=== PATIENT | male | born 1930 | race Caucasian/White ===

== ENCOUNTER 2016-09-09 23:39 | Emergency (ER) | payer MEDICARE, OTHER ==
--- NOTE | ~2016-09-09 | ER ---
PATIENT'S NAME: THADDEUS NICHOLAS [facility] AGE: 86 Y [address] ROOM: [place] [address] LOCATION: [facility] ADMIT DATE: 09/09/2016 ER/Outpatient Report DISCHARGE DATE: FAMILY PHYSICIAN: Blanco Neff MD ATTENDING PHYSICIAN: Sajan Roy Admission date and time documented in the medical record. I saw the patient at 2350 hours. CHIEF COMPLAINT: Diarrhea. HISTORY OF PRESENT ILLNESS: This patient is an 86-year-old male, who has had watery, profuse, explosive diarrhea for the past week. He had a large explosive diarrheal stool today. No bright red blood was noted in the stool. No nausea or vomiting. No fever, chills, or sweats. No cough or colds. He has not really been lightheaded, dizzy, or having syncope or near syncope. No headache, eyes, ears, nose, throat, neck, or spine pain. No chest pain. He is a little bit short of breath because of the abdominal distention that he has been having. No abdominal pain, but having abdominal distention. No nausea or vomiting. No urinary frequency, urgency, or dysuria. No joint or muscle swelling, redness, or pain. No skin eruptions or rash. HOME MEDICATIONS: See attached medication list. ALLERGIES: NONE. SOCIAL HISTORY: Nonsmoker and nondrinker. SIGNIFICANT PAST MEDICAL HISTORY: Atherosclerotic ischemic heart disease with coronary artery disease, hypertension, dementia, nonischemic cardiomyopathy, benign prostatic hypertrophy, hiatal hernia, peptic ulcer disease, dyslipidemia, gastroesophageal reflux, chronic kidney disease, congestive heart failure, depression, and chronic anticoagulation with Coumadin. OPERATIONS: Esophagogastroduodenoscopy, transurethral resection of the prostate, pacemaker placement, ICD placement, cardiac catheterization. REVIEW OF SYSTEMS: PATIENT'S NAME: THADDEUS NICHOLAS [facility] AGE: 86 Y [address] ROOM: [place] [address] LOCATION: [facility] ADMIT DATE: 09/09/2016 ER/Outpatient Report DISCHARGE DATE: FAMILY PHYSICIAN: Blanco Neff MD ATTENDING PHYSICIAN: Sajan Roy All systems reviewed by me are negative with exception of those discussed in the history of present illness. PHYSICAL EXAMINATION: VITAL SIGNS: Temperature is 98.3, tympanic; pulse 71; respirations 16; blood pressure 103/58; O2 saturation on room air is 97%. HEENT: Head: Normocephalic. Eyes, Ears, Nose, Throat: Clear. Mucous membranes are moist. NECK: Negative. SPINE: Negative. LUNGS: Clear. Good air flow. No rales, rhonchi, or wheezes. HEART: Regular. Pulses are palpable. ABDOMEN: Soft, mildly distended, nontender, tympanic to percussion. No organomegaly or abnormal masses palpable. No CVA tenderness. EXTREMITIES: Without peripheral edema, cyanosis, or deformity. NEUROVASCULAR: Intact. SKIN: Clear. LABORATORY DATA: White count was 11,100, 76 segs, 12 lymphocytes, 9 monos, 2 eos. Hemoglobin was 17.3 with hematocrit 52.9, platelet count is 164,000. Pro time was 39.8 with INR of 3.4. Lactate was 2.9. Procalcitonin was 0.22. CMS was normal except for a low CO2 content of 21, elevated glucose 116, elevated BUN of 31, elevated creatinine 2.3, low GFR 27. Amylase and lipase were normal. CRP was 2.14. ProBNP was 4483. IMPRESSION: 1. Intermittent explosive watery diarrhea, etiology uncertain at this time. The patient will need to get a stool sample for stool PCR. Unable to get a stool from the patient here in the emergency department. We will send a kit home with him to the prison. 2. Alzheimer dementia. 3. Hypertension. 4. Atherosclerotic ischemic heart disease with coronary artery disease. 5. Peptic ulcer disease. 6. Dyslipidemia. 7. Gastroesophageal reflux. 8. Chronic kidney disease. 9. Congestive heart failure. 10. Depression. 11. Chronic anticoagulation with Coumadin. PLAN: The patient discharged from the emergency room home to [facility]. Stool collecting kit was sent with the patient. Stool is needed for stool PCR PATIENT'S NAME: THADDEUS NICHOLAS [facility] AGE: 86 Y [address] ROOM: [place], [place] [address] LOCATION: [facility] ADMIT DATE: 09/09/2016 ER/Outpatient Report DISCHARGE DATE: FAMILY PHYSICIAN: Blanco Neff MD ATTENDING PHYSICIAN: Sajan Roy analysis in the laboratory here at [facility]. Fluids and diet as tolerated. Continue present home medications. Follow up with personal physician as needed. Discussed my findings and recommendations with the patient's son. He understands. MD SHANIA PEREYRA/modl /[id number] d: 09/10/16 0223 t: 09/10/16 0523, OUTPATIENT REPORT
[2016-09-10 00:23] LABS: BASOPHIL % 0.2 %; EOSINOPHIL # 0.2 K/uL (0.0-0.5); EOSINOPHIL % 1.9 %; HEMATOCRIT 52.9 % (33.0-50.0); HEMOGLOBIN 17.3 g/dL (11.0-16.0); IMMATURE GRANULOCYTE # 0.1 K/uL (0.0-0.3); IMMATURE GRANULOCYTE % 0.5 %; LYMPHOCYTE # 1.4 K/uL (0.8-4.0); LYMPHOCYTE % 12.2 %; MCH 31.5 pg (27.0-34.0); MCHC 32.7 gm/dL (32.0-36.5); MCV 96.2 fl (83.0-98.0); MONOCYTE % 8.9 %; MPV 11.1 fl (9.4-12.4); NEUTROPHIL # (ANC) 8.4 K/uL (1.4-9.0); NEUTROPHIL % 76.3 %; NRBC % 0 /100WBC (0-0.00); PLATELET COUNT 164 K/uL (150-450); RDW-CV 12.8 % (11.9-14.6); WBC 11.1 K/uL (4.0-11.0)
[2016-09-10 00:30] LABS: INR - (THERAPEUTIC) 3.4 (0.9-1.1); PROTIME 39.8 SECONDS (9.6-11.1)
[2016-09-10 00:42] LABS: ALBUMIN 3.1 gm/dL (3.5-5.0); ANION GAP 16.2 (10.0-19.0); CALCIUM 8.8 mg/dL (8.5-10.5); CREATININE 2.3 mg/dL (0.6-1.3); POTASSIUM 4.2 mMol/L (3.7-5.1); TOTAL BILIRUBIN 0.5 mg/dL (0.0-1.5); TOTAL PROTEIN 6.9 g/dL (6.0-8.4)
== END 2016-09-10 01:50 | disposition disaster alternative care site (69) ==
LOC: GMED 23:39
PROVIDERS: Emergency Medicine
DX: R19.7 Diarrhea, unspecified (principal); G30.0 Alzheimer's disease with early onset; F02.80 Dementia in other diseases classified elsewhere, unspecified severity, without behavioral disturbance, psychotic disturbance, mood disturbance, and anxiety; I25.10 Atherosclerotic heart disease of native coronary artery without angina pectoris; K27.9 Peptic ulcer, site unspecified, unspecified as acute or chronic, without hemorrhage or perforation; E78.5 Hyperlipidemia, unspecified; K21.9 Gastro-esophageal reflux disease without esophagitis; I13.0 Hypertensive heart and chronic kidney disease with heart failure and stage 1 through stage 4 chronic kidney disease, or unspecified chronic kidney disease; I50.9 Heart failure, unspecified; F32.9 Major depressive disorder, single episode, unspecified; N18.9 Chronic kidney disease, unspecified

== ENCOUNTER → 2016-09-09 | Outpatient (CLI) | payer MEDICARE, OTHER ==
[~2016-09-09] MED LIST: ALDACTONE25 MG PO; ATIVAN 1 MG1 MG PO; COREG12.5 MG PO; COUMADIN ** IA3 MG PO; FEOSOL325 MG PO; IMODIUM A-D2 MG PO; LASIX20 MG PO; NITROSTAT0.4 MG SL; OMNICEF 300MG300 MG PO; PAXIL20 MG PO; PRAVACHOL80 MG PO; SEROQUEL25 MG PO; TYLENOL EXTRA500 MG PO; ZYLOPRIM300 MG PO
== END | disposition disaster alternative care site (69) ==
LOC: GAMB 23:23
DX: K56.60 Unspecified intestinal obstruction (principal); F03.90 Unspecified dementia, unspecified severity, without behavioral disturbance, psychotic disturbance, mood disturbance, and anxiety; R19.7 Diarrhea, unspecified; R19.30 Abdominal rigidity, unspecified site
CPT/HCPCS: A0425; A0429

== ENCOUNTER → 2016-09-10 | Outpatient (CLI) | payer MEDICARE, OTHER ==
[2016-09-10 11:57] LABS: ADENOVIRUS F 40/41 Not Detected (Not Detect); ASTROVIRUS Not Detected (Not Detect); C DIFFICILE TOXIN A/B Not Detected (Not Detect); CAMPYLOBACTER SPECIES Not Detected (Not Detect); CRYPTOSPORIDIUM Not Detected (Not Detect); CYCLOSPORA CAYETANENSIS Not Detected (Not Detect); E. COLI (EPEC) Not Detected (Not Detect); E. COLI (ETEC) Not Detected (Not Detect); E. COLI (STEC) Not Detected (Not Detect); ENTAMOEBA HISTOLYTICA Not Detected (Not Detect); GIARDIA LAMBLIA Not Detected (Not Detect); NOROVIRUS GI/ GII DETECTED (Not Detect); PLESIOMONAS SPECIES Not Detected (Not Detect); ROTAVIRUS A Not Detected (Not Detect); SALMONELLA SPECIES Not Detected (Not Detect); SAPOVIRUS Not Detected (Not Detect); SHIGELLA AND EIEC Not Detected (Not Detect); VIBRIO SPECIES Not Detected (Not Detect); YERSINIA ENTEROCOLITICA Not Detected (Not Detect)
== END | disposition disaster alternative care site (69) ==
LOC: GLAB 09:21
PROVIDERS: Emergency Medicine
DX: R19.7 Diarrhea, unspecified (principal)

== ENCOUNTER 2016-10-30 10:55 | Emergency (ER) | payer MEDICARE, OTHER ==
--- NOTE | ~2016-10-30 | ER ---
PATIENT'S NAME: THADDEUS NICHOLAS [facility] AGE: 86 Y [address] ROOM: [place] [address] LOCATION: [facility] ADMIT DATE: 10/30/2016 ER/Outpatient Report DISCHARGE DATE: 10/30/2016 FAMILY PHYSICIAN: Blanco Neff MD ATTENDING PHYSICIAN: Diogo Wesley CHIEF COMPLAINT: Illness and fever. HISTORY OF PRESENT ILLNESS: The patient comes from [facility]. He has a history of advanced dementia. Since yesterday, he has been spiking some fevers. He has been treated with Tylenol. His family requested he come in, so ambulance was called and they brought him in. He has a history of some heart disease with a paced rhythm. There has been no evidence of falls. They state he has had some looser stools as well. The patient is unable to give any significant history. He is at his baseline according to family who do give the chief history. PAST MEDICAL HISTORY: Notable for dementia, hypertension, hypercholesterolemia, atrial fibrillation on anticoagulation, and anxiety. ALLERGIES: NO KNOWN DRUG ALLERGIES. MEDICATIONS: See med list. REVIEW OF SYSTEMS: The patient could not participate in review of systems; however, all available information from the facility, EMS, and family. PHYSICAL EXAMINATION: VITAL SIGNS: Blood pressure is 114/59, pulse is 70, respiratory rate is 16, temperature is 97.1, SpO2 is 98% on room air. GENERAL: Pleasant, age-appropriate male recumbent on the exam table, in no obvious pain or distress. NEURO: The patient is awake. He has clear speech. He is confused. Gives inappropriate answers and does not recognize immediate family members. Does not know his name and does not know the date. He does follow commands in all extremities. HEENT: Normocephalic, atraumatic. Eyes are PERRL. Oropharynx is clear. NECK: Supple. Trachea is midline. PATIENT'S NAME: THADDEUS NICHOLAS [facility] AGE: 86 Y [address] ROOM: [place] [address] LOCATION: [facility] ADMIT DATE: 10/30/2016 ER/Outpatient Report DISCHARGE DATE: 10/30/2016 FAMILY PHYSICIAN: Blanco Neff MD ATTENDING PHYSICIAN: Diogo Wesley CHEST: Heart is regular rate and rhythm with no murmurs. LUNGS: Grossly clear to auscultation in the upper lung chicas; however, slightly coarse at the bases. BACK: Nontender to palpation throughout. No CVA tenderness. ABDOMEN: Soft, nontender, and nondistended. No rebound or guarding. EXTREMITIES: Warm and well perfused. No obvious abnormalities. SKIN: Warm, dry, and intact. LABORATORY DATA AND X-RAYS: Chest x-ray grossly unchanged with poor volumes per my read. LABORATORY DATA: WBC of 16.6, hemoglobin of 14.5, and platelets of 198. INR is 2.71. CMS: Sodium of 139, potassium 6.0, chloride of 109, CO2 of 24, BUN of 32, creatinine of 2.2. GFR of 29. LFTs within normal limits. CK-MB is 1.3. Troponin I below threshold CRP 6.64. ProBNP is 6748. Lactate is 1. Urinalysis 100 leukocytes micro with 20 to 50 wbc's, rare RBCs, rare epithelial cells, rare bacteria. Procalcitonin 0.16. EKG appears to be a paced rhythm. Rate of 70. No significant change compared to prior EKG from 08/24/2016. IMPRESSION: 1. Febrile illness. 2. Baseline renal failure. 3. Hyperkalemia without evidence of effects. 4. Elevated proBNP without evidence of heart failure. 5. Pyuria. No clear infection. 6. Severe. Dementia. EMERGENCY DEPARTMENT COURSE: The patient was seen and evaluated as above. Blood culture was obtained in addition to workup as above. Based on my presentation and evaluation, I do not think the patient is in heart failure at this time. There was no clear pneumonia, no clear urinary tract infection. The patient does have very mild hyperkalemia. No signs on the EKG. I spoke at length with daughter, Edith Major, who spoke with the family and spoke on their behalf. It is their desire that we follow what they think their father would want. In this case, they do not believe that he would want unnecessary treatments or pain. We have opted not to treat any of his current findings today. I believe this is an appropriate course of action as the patient appears to be hemodynamically stable and at his baseline mental status. We will culture the urine and follow the blood cultures. We will notify the facility and family if they require interventions. They should continue to treat his fever. I believe the patient is stable for return to [facility]. He should follow up with his primary care provider as needed. I believe that the family has an PATIENT'S NAME: THADDEUS NICHOLAS [facility] AGE: 86 Y [address] ROOM: [place] [address] LOCATION: [facility] ADMIT DATE: 10/30/2016 ER/Outpatient Report DISCHARGE DATE: 10/30/2016 FAMILY PHYSICIAN: Blanco Neff MD ATTENDING PHYSICIAN: Diogo Wesley appropriate grasp on the expected history, the patient's dementia, and prognosis. I believe at this time, no intervention is appropriate based upon the extensive family conversations. The patient will be discharged back to the facility without further issue. DIOGO WESLEY MD JH/modl /[id number] d: 10/31/16 0106 t: 11/01/16 2224, OUTPATIENT REPORT
[2016-10-30 11:46] LABS: BILIRUBIN URINE NEGATIVE (NEGATIVE); BLOOD URINE 10 /UL (NEGATIVE); COLOR URINE YELLOW (YELLOW); GLUCOSE URINE NEGATIVE (NEGATIVE); KETONE URINE NEGATIVE (NEGATIVE); LEUKOCYTES URINE 100 /UL (NEGATIVE); NITRITE URINE NEGATIVE (NEGATIVE); PROTEIN URINE 30 mg/dL (NEGATIVE); TURBIDITY URINE 1+ (CLEAR); UROBILINOGEN URINE NORMAL (NORMAL)
[2016-10-30 11:51] LABS: BACTERIA URINE NEGATIVE (NEGATIVE); EPITHELIAL URINE RARE #/HPF (NEGATIVE); RBC URINE RARE #/HPF (NEGATIVE); WBC URINE 20-50 #/HPF (NEGATIVE)
[2016-10-30 12:08] LABS: BASOPHIL # 0.1 K/uL (0.0-0.2); BASOPHIL % 0.3 %; EOSINOPHIL # 0.2 K/uL (0.0-0.5); HEMATOCRIT 45.2 % (33.0-50.0); HEMOGLOBIN 14.5 g/dL (11.0-16.0); IMMATURE GRANULOCYTE # 0.2 K/uL (0.0-0.3); LYMPHOCYTE # 1.9 K/uL (0.8-4.0); LYMPHOCYTE % 11.3 %; MCH 31.3 pg (27.0-34.0); MCHC 32.1 gm/dL (32.0-36.5); MCV 97.4 fl (83.0-98.0); MONOCYTE # 1.3 K/uL (0.0-1.0); MONOCYTE % 7.8 %; MPV 10.6 fl (9.4-12.4); NEUTROPHIL % 78.6 %; NRBC % 0 /100WBC (0-0.00); RBC 4.64 M/uL (3.50-5.50); RDW-CV 13.8 % (11.9-14.6)
[2016-10-30 12:10] LABS: PLATELET COUNT 198 K/uL (150-450); WBC 16.6 K/uL (4.0-11.0)
[2016-10-30 12:20] LABS: INR - (THERAPEUTIC) 2.71 (0.92-1.07); PROTIME 28.7 SECONDS (9.8-11.4); PTT 49 SECONDS (25-32)
[2016-10-30 12:21] LABS: ALBUMIN 2.9 gm/dL (3.5-5.0); ALK PHOS 88 IU/L (33-138); ALT 27 IU/L (12-78); BLOOD UREA NITROGEN 32 mg/dL (6-24); CALCIUM 8.6 mg/dL (8.5-10.5); CHLORIDE 109 mMol/L (96-110); CO2 24 mMol/L (22-32); CREATININE 2.2 mg/dL (0.6-1.3); ESTIMATED GFR (MDRD EQUATION) 29; SODIUM 139 mMol/L (135-145); TOTAL PROTEIN 6.9 g/dL (6.0-8.4)
[2016-10-30 12:24] LABS: AST 28 IU/L (10-40); TOTAL BILIRUBIN 0.9 mg/dL (0.0-1.5)
== END 2016-10-30 13:44 | disposition disaster alternative care site (69) ==
LOC: GMED 10:55
PROVIDERS: Emergency Medicine
PROC: 0T9B70Z Drainage of Bladder with Drainage Device, Via Natural or Artificial Opening (ICD-10-PCS; principal; 2016-10-30)
DX: N39.0 Urinary tract infection, site not specified (principal); E87.5 Hyperkalemia; N19 Unspecified kidney failure; F03.90 Unspecified dementia, unspecified severity, without behavioral disturbance, psychotic disturbance, mood disturbance, and anxiety; R74.8 Abnormal levels of other serum enzymes; I48.91 Unspecified atrial fibrillation; I10 Essential (primary) hypertension; E78.00 Pure hypercholesterolemia, unspecified; F41.9 Anxiety disorder, unspecified; Z79.899 Other long term (current) drug therapy

== ENCOUNTER → 2016-10-30 | Outpatient (CLI) | payer MEDICARE, OTHER | END | disposition disaster alternative care site (69) | LOC: GAMB 10:22 | DX: R50.9 Fever, unspecified (principal); F03.91 Unspecified dementia, unspecified severity, with behavioral disturbance; R19.7 Diarrhea, unspecified; R05 Cough; Z79.899 Other long term (current) drug therapy | CPT/HCPCS: A0425; A0429; J7030 ==

== ENCOUNTER 2017-02-19 08:39 | Inpatient (IN) | payer MEDICARE, OTHER ==
[~2017-02-19] VITALS: Ht 172.7 cm; Wt 86.4 kg
--- NOTE | ~2017-02-19 | ER ---
PATIENT'S NAME: THADDEUS NICHOLAS [facility] AGE: 86 Y [address] ROOM: [place] [address] LOCATION: [facility] ADMIT DATE: 02/19/2017 ER/Outpatient Report DISCHARGE DATE: FAMILY PHYSICIAN: DANIA MILLER MD ATTENDING PHYSICIAN: ALLISON JORDAN TIME OF ARRIVAL: 0840 hours. TIME OF EVALUATION: 0840 hours. CHIEF COMPLAINT: Stroke alert. HISTORY OF PRESENT ILLNESS: The patient is an 86-year-old male who presents to the emergency department today with chief complaint stroke alert. Apparently per the patient's son, he does have a history of advanced dementia. Yesterday, the patient's daughter was visiting him. He was having slurred speech and confused speech. Apparently this morning, he became more altered. His last known witnessed time of being normal was multiple days before. He did get worse this morning. He did have a fall this morning per the usp. The patient is nonverbal. There is no reports of fevers or chills. No nausea or vomiting. No diarrhea or constipation. The patient was just started on cefdinir yesterday for urinary tract infection. PAST MEDICAL HISTORY: Coronary artery disease, congestive heart failure, dyslipidemia, chronic kidney disease stage 3, depression, hypertension, advanced dementia, benign prostatic hyperplasia. PAST SURGICAL HISTORY: EGD, transurethral resection of the prostate, pacemaker, ICD, heart cath. SOCIAL HISTORY: The patient denies any tobacco, alcohol, or illicit drug use. ALLERGIES: NO KNOWN DRUG ALLERGIES. MEDICATIONS: Please see list. PRIMARY CARE DOCTOR: PATIENT'S NAME: THADDEUS NICHOLAS [facility] AGE: 86 Y [address] ROOM: [place] [address] LOCATION: [facility] ADMIT DATE: 02/19/2017 ER/Outpatient Report DISCHARGE DATE: FAMILY PHYSICIAN: DANIA MILLER MD ATTENDING PHYSICIAN: ALLISON JORDAN MD REVIEW OF SYSTEMS: All systems are reviewed by myself and are negative with the exception of those discussed in HPI and past medical history. PHYSICAL EXAMINATION: VITAL SIGNS: Weight 86.8 kg. Blood pressure 147/78, pulse 76, respiratory rate 16, temperature 98, oxygen saturation 92% on room air. GENERAL: The patient is an 86-year-old male, who appears stated age. He is alert but noncommunicative. HEENT. Head is normocephalic and atraumatic. Pupils are equal, round, and reactive to light and accommodating. The patient does not follow extraocular motions and does have a left lateral gaze. Oropharynx is mildly dry. TMs are clear. No hemotympanum. NECK: Supple. There is no step-offs or deformities. Appears to have no tenderness to palpation. CARDIOVASCULAR: Regular rate and rhythm. No murmurs, rubs, or gallops. LUNGS: Clear to auscultation bilaterally. No wheezes, rales, or rhonchi. ABDOMEN: Soft, nontender, and nondistended. No rebound, rigidity, or guarding. MUSCULOSKELETAL: The patient does move left arm and he does not move either leg. Does not move the right arm. NEUROLOGICAL: GCS E4, V1, M6. No clonus. He does have pronator drift on the right. He does have a weak information technology assistant strength on the right, compared to the left. He is not following commands with ability to raise the legs. LABORATORY DATA AND X-RAYS: CT imaging does reveal an acute large left temporal lobe hemorrhage with adjacent subdural and subarachnoid blood, localized mass effect, small vessel changes. CT scan of the C-spine is obtained. I have discussed results with the radiologist, shows mild multilevel degenerative changes with no discrete fracture or dislocation. Urinalysis is unremarkable except for 500 leukocyte esterase, 30 protein, 50 blood, 20-50 wbc's, rare epithelials, negative bacteria. Procalcitonin 0.61. Urine culture no growth after day 1. ProBNP is 5867. Troponin is less than 0.04. CMP unremarkable except for chloride 112, CO2 21, glucose 113, BUN 37, creatinine is 2.0 LFTs are normal. Lactate is 1.0. CBC unremarkable. Coags: PTT is 62, PT is 41.7, INR is 3.92. Accu- Chek was 90. IMPRESSION: 1. Acute large left temporal lobe hemorrhage with subdural and subarachnoid bleed. 2. Acute urinary tract infection. 3. Chronic kidney disease. PATIENT'S NAME: THADDEUS NICHOLAS [facility] AGE: 86 Y [address] ROOM: [place] [id number] LOCATION: [facility] ADMIT DATE: 02/19/2017 ER/Outpatient Report DISCHARGE DATE: FAMILY PHYSICIAN: DANIA MILLER MD ATTENDING PHYSICIAN: ALLISON JORDAN 4. Advanced dementia. 5. Critical care time 32 minutes. 6. Initial visit. EMERGENCY DEPARTMENT COURSE: The patient brought back to the examination room. Seen and evaluated by myself. IV is established. Laboratory analysis and imaging are obtained as described above. I have contacted Dr. Salcedo after my preliminary read by the CT scan of the brain and discussed the case with him. I have discussed his potential surgical options with the patient is not a surgical candidate. I have discussed this with the family. They are in agreement that with the patient's advanced dementia, he would not wish to have surgery. I have discussed the case with both the patient's and patient's son. The patient is written for 4 units of FFP to transfuse. The patient is given 10 mg of vitamin K IV. He is also given 1 g of Rocephin IV. I have discussed the case with Dr. Jordan with the Hospitalist Service. He does agree to accept the patient for further evaluation, treatment, and management. The patient did require a cumulative critical care time of 32 minutes. This did include talking with family, talking with consultants, ordering tests, reviewing tests, reviewing old records as well as close monitoring with a patient with significant brain bleeding and elevated INR level. DISPOSITION: The patient is admitted under the care of Hospitalist Service in stable condition. DO KASSY AGOSTO/modl /[id number] d: 02/19/171400 t: 02/20/17 1001, OUTPATIENT REPORT
--- NOTE | ~2017-02-19 | HP ---
PATIENT'S NAME: THADDEUS NICHOLAS [facility] AGE: 86 Y [address] ROOM: [place] [address] LOCATION: [facility] ADMIT DATE: 02/19/2017 History & Physical DISCHARGE DATE: FAMILY PHYSICIAN: DANIA MILLER MD ATTENDING PHYSICIAN: ALLISON HART DATE OF SERVICE: CHIEF COMPLAINT: Unresponsiveness, intracranial hemorrhage. HISTORY OF PRESENT ILLNESS: This is an 86-year-old male with history of dementia and paroxysmal atrial fibrillation, on Coumadin, here with unresponsiveness. On evaluation in the emergency room, the patient was noted to have multiple intracranial hemorrhages. The patient apparently fell at a group home 2 or 3 days ago, and his mental status slowly deteriorated, and apparently, also fell again one more time this morning and has since been virtually unresponsive. The patient's mental status continued to deteriorate, and during my visit, the patient is only minimally grimacing to sternal rub. Per at the bedside, she reports that he was able to at least open his eyes to name a few hours ago, and he is not able to do that. I talked to the and family, and at this point, they wish the patient to be comfort cares, and he is DNR/DNI at this point. We will go ahead with full comfort care measures at this point. PAST MEDICAL HISTORY: 1. Paroxysmal atrial fibrillation. 2. Coronary artery disease. 3. Long-term anticoagulation with Coumadin. 4. Hyperlipidemia. 5. CKD, stage 3. 6. Hypertension. 7. Dementia. FAMILY HISTORY: He has a history of hypertension in the family. SOCIAL HISTORY: The patient lives in a group home locally. No history of alcohol, tobacco, or drug use noted. REVIEW OF SYSTEMS: Full review of systems was not able to be conducted due to the patient's mental status. PATIENT'S NAME: THADDEUS NICHOLAS [facility] AGE: 86 Y [address] ROOM: [place] [address] LOCATION: [facility] ADMIT DATE: 02/19/2017 History & Physical DISCHARGE DATE: FAMILY PHYSICIAN: DANIA MILLER MD ATTENDING PHYSICIAN: ALLISON HART PHYSICAL EXAMINATION: VITAL SIGNS: Blood pressure 120/72, pulse 70, respiratory rate 16, saturating 94% on 2 L. GENERAL: The patient is unresponsive, grimaces to sternal rub. HEENT: Dry mucosal membranes. Pupils pinpointed and normally reactive. SKIN: Without rash or lesions. CHEST: Clear to auscultation bilaterally. HEART: S1 and S2. Regular rate and rhythm. ABDOMEN: Soft, nontender, and nondistended. EXTREMITIES: Without edema. NEUROLOGIC: Only responds and grimaces to sternal rub. Moves his left upper extremity. ASSESSMENT AND PLAN: 1. Intracranial hemorrhage secondary to a fall while on Coumadin with an INR greater than 3. CT showing large left temporal hemorrhage, subdural as well as subarachnoid hemorrhages as well. The patient received vitamin K and FFP in the ED. 2. Unresponsiveness versus intracranial bleed. Had a lengthy discussion with the family, and at this point, the family would like to go with long comfort care measures . The patient is do not resuscitate/do not intubate and is on comfort care at this point while family is gathering. 3. Supratherapeutic INR from treatment with Coumadin. Vitamin K and FFP given. MD ANY MARIE/andrade /[id number] D: T: HISTORY & PHYSICAL
--- NOTE | ~2017-02-19 | CON ---
PATIENT'S NAME: THADDEUS NICHOLAS [facility] AGE: 86 Y [address] ROOM: [place] [address] LOCATION: [facility] [place] ADMIT DATE: 02/19/2017 Consultation DISCHARGE DATE: FAMILY PHYSICIAN: DANIA MILLER MD ATTENDING PHYSICIAN: ALLISON HART DATE OF CONSULTATION: 02/21/2017 REFERRING PHYSICIAN: Fouzia Conn NP PALLIATIVE CARE CONSULT[place] [facility] [place]FERRING PHYSICIAN: Jameson Sierra MD REASON FOR CONSULTATION: This is a Palliative Care referral for patient and family support and questions on hospice. HISTORY OF PRESENT ILLNESS: This 86-year-old male was admitted on 02/19/2017 with unresponsiveness. He has a known history of advanced dementia, has been living at [facility] for the past year. Also has paroxysmal atrial fibrillation, was on Coumadin; and the patient was noted to have multiple intracranial hemorrhages after a fall at [facility] 2 to 3 days ago. His mental status slowly deteriorated, and the patient fell again on date of admission. On arrival to the ER, patient was virtually unresponsive and mental status continued to deteriorate. Hospitalist had talked with family and family was ready to make the patient comfortable. He is a do not resuscitate/do not intubate. The patient had been having some restless episodes and grabbing of his head on 02/20 per son. Currently, the patient is restless in bed, had been getting morphine 4 times in the last 24 hours IV 2 mg and has been getting Ativan pretty routinely, every couple hours patient gets more restless. Has been getting more Ativan due to having some itching and family thought that the patient was having a reaction from the morphine. The patient does squeeze hand, but is unresponsive, seems to know family voices. No shortness of breath. Does have some irregular breathing at times. PAST MEDICAL HISTORY: 1. Paroxysmal atrial fibrillation, on Coumadin. 2. Coronary artery disease, on long-term anticoagulation with Coumadin. 3. Hyperlipidemia. 4. Chronic kidney disease, stage 3. PATIENT'S NAME: THADDEUS NICHOLAS [facility] AGE: 86 Y [address] ROOM: [place] [address] LOCATION: [facility] [place] ADMIT DATE: 02/19/2017 Consultation DISCHARGE DATE: FAMILY PHYSICIAN: DANIA MILLER MD ATTENDING PHYSICIAN: ALLISON HART 5. Hypertension. 6. Dementia for the past 5 years. Really deteriorated the last year. 7. Macular degeneration. 8. Congestive heart failure. 9. Congestive heart failure with AICD placement. FAMILY HISTORY: Hypertension. PAST SURGICAL HISTORY: 1. AICD placement. 2. Bilateral cataract removal. 3. TURP. 4. Cysto. 5. Macular degeneration. SOCIAL HISTORY: He is to his , will be 68 years this month on the and has 2 girls, and 2 boys. REVIEW OF SYSTEMS: Complete review of systems is done and is negative except as mentioned in HPI. CURRENT MEDICATIONS: 1. Roxanol 20 mg/mL 5 mg p.o. every 4 hours. 2. Ativan 0.5 mg IV subcutaneously or sublingual every 2 hours. 3. Haldol 1 mg every 8 hours p.r.n. agitation and confusion. 4. Morphine 2 mg IV every 8 hours p.r.n. pain. 5. Compazine 5 mg p.o. every 6 hours. 6. Compazine 25 mg suppository every 12 hours p.r.n. nausea. 7. Dulcolax 10 mg suppository p.r.n. constipation. 8. Tylenol 650 mg per rectum and p.o. every 4 hours for elevated temperature or mild pain. 9. Atropine 1% ophthalmic drop 1 to 2 drops every 4 hours p.r.n. increased respiratory secretions. 10. Levsin sublingual 0.125 mg every 4 hours p.r.n. increased respiratory secretions. ALLERGIES: NO KNOWN ALLERGIES. PHYSICAL EXAMINATION: GENERAL: This is an 86-year-old well-developed male in no acute distress. Unresponsive. able to squeeze hand. VITAL SIGNS: Temperature 99.2, pulse 70, respirations 14, and blood pressure PATIENT'S NAME: THADDEUS NICHOLAS [facility] AGE: 86 Y [address] ROOM: [address] [address] LOCATION: [facility] [place] ADMIT DATE: 02/19/2017 Consultation DISCHARGE DATE: FAMILY PHYSICIAN: DANIA MILLER MD ATTENDING PHYSICIAN: ALLISON HART 105/79. He is 5 feet 8 inches, weighs 190 pounds with a BMI of 28.1. SKIN: Warm and dry. Color pale. Bruises noted on lower legs, and abrasion noted on right shoulder. HEENT: Normocephalic and atraumatic. Sclerae nonicteric. Conjunctivae are pale pink. Mouth is pink and moist without exudate. RESPIRATORY: Clear to auscultation bilaterally. Breath sounds irregular at times. Slightly labored. CARDIAC: S1 and S2 without murmurs. Does have a pacemaker in the left upper chest area. Son states defibrillator was turned off approximately three months ago due to patient's cognitive decline. No lower extremity edema. ABDOMEN: Soft, nontender. Positive bowel tones. No hepatosplenomegaly. Last BM was 02/18/2017. NEUROLOGIC: Unable to follow any commands, squeezes 's hand and children's hand, not on command. MUSCULOSKELETAL: Able to move extremities slightly but not on command. EXTREMITIES: No cyanosis or deformities. No mottling. Palliative performance scale is about 20%. Level of consciousness is 40%, unable do any activity. Total care; n.p.o., not taking anything orally. Level of consciousness is unresponsive. IMPRESSION: Pain, discomfort, and some dyspnea. Intracranial hemorrhage. PLAN: 1. Met with family. Two sons, one is Basilio, who is a medical power of city attorney and his , iMsa, and son, Jack and his and sister. Discussed overall condition and goals of care. Family would like the patient to be as comfortable as possible. We would like to keep at the hospital if at all possible. Had questions on next step if the patient continues to stabilize. Answered questions on possible transfer to inpatient hospice and qualifying for inpatient hospice due to symptoms not being out of control. 2. Discussed returning to possibly [facility] with caregivers versus [facility] if the patient continues to linger. Answered questions and concerns on hospice, end of life signs and symptoms, and signs of pain and discomfort, and medications for symptoms and end of life. 3. Spiritual; personal privacy officer from [employer] has been up daily and has good contact with family. Emotional support has been given. Pastoral care stops in. Recommendations for pain. He is currently taking morphine IV and has Roxanol ordered if IV fails. Dyspnea, morphine IV or Roxanol. Restlessness, Ativan p.r.n. Total time was 60 minutes with 50 minutes for counseling and coordination of care and education on signs and symptoms and hospice. PATIENT'S NAME: THADDEUS NICHOLAS [facility] AGE: 86 Y [address] ROOM: [address] [address] LOCATION: [facility] [place] ADMIT DATE: 02/19/2017 Consultation DISCHARGE DATE: FAMILY PHYSICIAN: DANIA MILLER MD ATTENDING PHYSICIAN: ALLISON HART Thank you for allowing me to assist this patient and family. FOUZIA CONN NP FOR MD CHITO NERI/andrade /[id number] d: 02/22/172004 t: 03/03/170, CONSULTATION REPORT
[2017-02-19 08:54] LABS: BASOPHIL % 0.3 %; EOSINOPHIL # 0.1 K/uL (0.0-0.5); EOSINOPHIL % 0.6 %; HEMATOCRIT 48.4 % (33.0-50.0); HEMOGLOBIN 16.2 g/dL (11.0-16.0); IMMATURE GRANULOCYTE % 0.4 %; LYMPHOCYTE # 1.5 K/uL (0.8-4.0); LYMPHOCYTE % 13.9 %; MCH 32.3 pg (27.0-34.0); MCHC 33.5 gm/dL (32.0-36.5); MCV 96.6 fl (83.0-98.0); MONOCYTE # 1.1 K/uL (0.0-1.0); MONOCYTE % 9.7 %; MPV 11.7 fl (9.4-12.4); NEUTROPHIL # (ANC) 8.2 K/uL (1.4-9.0); NEUTROPHIL % 75.1 %; NRBC % 0 /100WBC (0-0.00); RBC 5.01 M/uL (3.50-5.50); RDW-CV 13.3 % (11.9-14.6)
[2017-02-19 08:56] LABS: PLATELET COUNT 138 K/uL (150-450)
[2017-02-19 09:09] LABS: INR - (THERAPEUTIC) 3.92 (0.92-1.07); PROTIME 41.7 SECONDS (9.8-11.4); PTT 62 SECONDS (25-32)
[2017-02-19 09:10] LABS: ANION GAP 12.4 (10.0-19.0); CALCIUM 8.8 mg/dL (8.5-10.5); POTASSIUM 4.4 mMol/L (3.7-5.1); TOTAL PROTEIN 6.7 g/dL (6.0-8.4)
[2017-02-19 09:38] LABS: COLOR URINE YELLOW (YELLOW); LEUKOCYTES URINE 500 /UL (NEGATIVE); NITRITE URINE NEGATIVE (NEGATIVE); SPEC GRAVITY URINE 1.015 (1.003-1.035); TURBIDITY URINE 1+ (CLEAR)
[2017-02-19 09:39] LABS: BILIRUBIN URINE NEGATIVE (NEGATIVE); BLOOD URINE 50 /UL (NEGATIVE); GLUCOSE URINE NEGATIVE (NEGATIVE); KETONE URINE NEGATIVE (NEGATIVE); PROTEIN URINE 30 mg/dL (NEGATIVE); UROBILINOGEN URINE NORMAL (NORMAL); WBC URINE 20-50 #/HPF (NEGATIVE)
[2017-02-19 09:40] LABS: BACTERIA URINE NEGATIVE (NEGATIVE); EPITHELIAL URINE RARE #/HPF (NEGATIVE); RBC URINE NEGATIVE #/HPF (NEGATIVE)
--- NOTE | 2017-02-19 14:24 | NUR ---
SIGNIFICANT EVENT: PATIENT UP TO ICU AT 1104. PATIENT WILL OPEN HIS EYES INCONSISTENTLY TO PAIN. PUPILS EQUAL AND REACTIVE. AT THE BEGINING OF THE SHIFT PATIENT APPEARED TO BE TRACKING A LITTLW WITH EYES, NOW DOES NOT TRACK. PATIENT DOES NOT VERBALLY RESPOND TO ANY QUESTIONS. PATIENT FOLLOWS SOME SIMPLE COMMANDS IN L) UPPER EXTREMITY AND MOVES PURPOSEFULLY AT TIMES. PATIENT ONLY WITHDRAWS IN R) UPPER AND LOWER EXTREMITIES. PATIENT HAS SOME SPONT MOVEMENTS IN L) LOWER EXTREMITY. STROKE SCALE OF 29 UPON ARRIVAL TO ICU. PATIENT'S AND ALL CHILDREN VERBALIZED THE WANT TO MAKE THE PATIENT TO BE COMFORT CARES. MORPHINE GIVEN FOR GASPIN FOR AIR X1 SO FAR, RELIEF NOTED. PATIENT IN PACED RHYTHM, HR 70S. PULSES PALPABLE. BP STABLE, SBP 130S, MAP>65. AFEBRILE. PATIENT IS COMFORT CARES. CURRENTLY ON ROOM AIR, SATS MID 90S. BOWEL SOUNDS PRESENT, NO BM. INCONT VOIDS IN ER, NON SINCE ARRIVAL TO ICU, NO S/S OF DISCOMFORT. NO NEW SKIN ISSUES SINCE ARRIVAL. L) HAND PIV SALINE LOCKED, NO COMPLICATIONS. ALL FAMILY MEMBERS AT BEDSIDE. PASTORAL CARE AT BEDSIDE. FAMILY DOES NOT VOICE ANY CONCERNS, SATISFIED WITH COMFORT CARES.
--- NOTE | 2017-02-19 16:33 | NUR ---
SOME SPONT MOVEMENTS NOTED ON R) UPPER EXTREMITY, PATIENT WILL WAKE UP AT TIMES AND VERBALIZE A FEW WORDS TO FAMILY, SUCH "I LOVE YOU GUYS". MUFFLED SPEECH. PATIENT VERBALIZES THAT THEY WISH TO CONTINUE WITH COMFORT CARES AND VOICE NO CONCERNS. MD AWARE OF ALL ASSESSMENT FINDINGS. NO OTHER CHANGES SINCE PREVIOUS SHIFT SUMMARY WRIITEN BY Regina DIAZ RN
--- NOTE | 2017-02-20 05:38 | NUR ---
Significant Event: PATIENT CONFUSED/COOPERATIVE, COMFORT CARE ORDERS, TURNED EVERY TWO HOURS, MORPHINE GIVEN FOR COMFORT, MOVES EXTRIMITES X4, VITAL SIGNS WNL Follow up:
[2017-02-20] MEDS ORDERED: ZYLOPRIM300 MG PO (10:20)
[2017-02-20] MEDS ORDERED: PAXIL20 MG PO (10:20)
[2017-02-20] MEDS ORDERED: PRAVACHOL80 MG PO (10:21)
[2017-02-20] MEDS ORDERED: ALDACTONE25 MG PO (10:22)
[2017-02-20] MEDS ORDERED: COREG12.5 MG PO (10:23)
[2017-02-20] MEDS ORDERED: LASIX20 MG PO (10:23)
[2017-02-20] MEDS ORDERED: FEOSOL325 MG PO (10:24)
[2017-02-20] MEDS ORDERED: COUMADIN ** IA3 MG PO ×2 (10:25→10:26)
[2017-02-20] MEDS ORDERED: SEROQUEL25 MG PO (10:26)
[2017-02-20] MEDS ORDERED: OMNICEF 300MG300 MG PO (10:27)
[2017-02-20] MEDS ORDERED: TYLENOL EXTRA500 MG PO (10:29)
[2017-02-20] MEDS ORDERED: IMODIUM A-D2 MG PO (10:29)
[2017-02-20] MEDS ORDERED: NITROSTAT0.4 MG SL (10:30)
[2017-02-20] MEDS ORDERED: ATIVAN 1 MG1 MG PO (10:30)
--- NOTE | 2017-02-20 15:24 | NUR ---
PT AROUSES AND OPENS EYES TO SOUND AND INCREASED STIMULI AT TIMES. MS 2MG GIVEN ABOUT Q2H SCHEDULED, WITH TURNS. ZUÑIGA WITH ADEQ UOP 550MLS DK YELLOW/LT GILL. NO BM, BS HYPO, VSS, AFEBRILE, PACED AT 70BPM WITH AICD PORTION TURNED OFF. PALE, GEN 1+ EDEMA WITH RUE 2+. RA, LS C/D, 90'S SATS, SBP 140 THIS AM.
--- NOTE | 2017-02-20 19:05 | NUR ---
Significant event: Patient opens eyes to sound. Family at bedside. Turned q 2 hours and Morphine 2mg IV q 2hours for comfort. Lungs clear and diminished.
--- NOTE | 2017-02-21 05:17 | NUR ---
Significant Event: Comfort cares continue. Patient repositioned frequenlty by staff ands self. Afebrile, VSS. Morphine (2mg) IV given x6 last at 0449 for comfort. Ativan 0.5mg given x1 at 1934 for agitation. Opens eyes at times to voice. Moves all extremities. PIV patent and saline locked. Family at bedside throughout the night. Follow up:
--- NOTE | 2017-02-21 16:05 | NUR ---
Met with family at bedside. Introduced myself and the role of the CM department. Family denies any needs at this time as patient is on comfort cares. Will continue to follow and offer supports as needed.
--- NOTE | 2017-02-21 19:03 | NUR ---
Patient continues to remain on comfort cares. Patient was turned every 2 hours and per family request medication was changed to ativan 0.5 mg q2h last at 1840. Patient IV to left hand intact. Patient does squeeze family members hands when spoken to, and reaches for hughes catheter but does not make any verbal attempts or follow family members with eyes. Patient had 500 dark urine out hughes. Patient looking forward to pallative care visit this evening.
--- NOTE | 2017-02-22 03:25 | NUR ---
SIGNIFICANT EVENT: Comfort cares pt. VSS at this time. Ativan given x3, last at 0033. 2mg morphine x2, last at 0209. Turn per pt comfort - has been on right side most for comfort. 300 out of hughes - yellow, cloudy urine. Family at bedside.
--- NOTE | 2017-02-22 14:51 | NUR ---
COMFORT MEASURES NOTED. PT IS NOT AT NUTRITION RISK. WILL CONTINUE TO OFFER FOOD/FLUIDS PT REQUESTS/TOLERATES. ASSIST NEEDED. F/U IN 7-10 DAYS.
--- NOTE | 2017-02-22 17:52 | NUR ---
Significant Event: Patient is comfort cares. Repo q 2hrs. Montes in place, patent. No IV access. Sublingual and subq meds available. VSS. on room air. Roxanol scheduled q 4 hrs. Able to give q hr if needed. Palliative wants us to try Haldol first before Ativan if restless. Family at bedside.
--- NOTE | 2017-02-23 04:35 | NUR ---
Patient is on comfort cares. VSS, afebrile, family stated his BP was "back up again". Roxanol given Q4 hours as scheduled. Has been repositioned often with family saying they wanted him to lay on his right side for 4 hours. Montes is patent with 550ml out. Family at bedside throughout the night. Patient did speak once to say thank you when administering meds but it was very quiet and barely audible. No ativan or haldol given during this shift.
--- NOTE | 2017-02-23 14:54 | NUR ---
0955 informed my Fouzia Richardson APRN and by patient's nurse ZEE Sol that he is declining. Per Noelle she does not think he will live through the weekend, but if he does we will need to look at transferring him back to [facility] or a senior care facility for his final days. Sweta was in agreement with the decline seen the past 24 hours. Will continue to follow and offer supports.
--- NOTE | 2017-02-23 17:28 | NUR ---
D: PATIENT CONTINUES ON COMFORT CARES HAS HAD BELA X 3 AT SCHEDULED TIMES LAST 1600, LEVISIN LAST AT 1700. PATIENT HAS HAD 35-47 SECOND APNEA EVERY 3-10 MINUTES. 400ML URINE OUT ZUÑIGA. PATIENT HAS HAD ORAL CARES AND TURNING EVERY 2 HOURS.
--- NOTE | 2017-02-24 04:33 | NUR ---
PT RESTED WELL THROUGHOUT SHIFT. HAS FREQUENT APNEIC EPISODES LASTING AROUND 45 SECONDS. WILL TAKE ABOUT 12 MODERATLY QUICK BREATHS EACH GETTING MORE SHALLOW PRIOR TO APNEA. IS NOT RESPONSIVE TO TOUCH/VOICE. 275 ML OUT OF FC. HAS LOOSE OCCASIONAL COUGH. FAMILY AT BEDSIDE THROUGHOUT SHIFT.
--- NOTE | 2017-02-24 17:54 | NUR ---
Significant Event: Patient unresponsive most of the shift. He will close his mouth with oral cares and has an occasional harsh cough. Atropine drips given sublingual x 2 with the last dose at 1208 and Levisen sublingual given at 0915. Patient was having some labored respirations and routine Roxanol given along with a prn dose of Roxanol 5 mg at 0915, 1015, 1210 and 1410. Started patient on a Morphine CADD pump subq at 1640 with 2 mg continuous infusion with 1 mg bolus and a 10 min lockout. Ativan 1 mg subq given at 1113. Temp up to 101.3 this morning and Tylenol 650 mg supp given at 0836. Temp down to 99.0 this afternoon. Patient has periods of apnea from 20-40 sec in length. Lots of family at the bedside. Follow up:
--- NOTE | 2017-02-25 06:05 | NUR ---
Significant Event: PT REMAINS UNRESPONSIVE FOR THE MOST PART. WILL CLOSE MOUTH AROUND SWABS. VS DECLINED THROUGHOUT SHIFT, CHECKED PER FAMILY'S REQUEST. 50ML OUT. TURNED Q2 HOURS. SEEMS MORE COMFORTABLE ON LEFT SIDE. Follow up:
--- NOTE | 2017-02-25 11:11 | NUR ---
PT VITALS TAKEN MULTIPLE TIMES PER FAMILY REQUEST
--- NOTE | 2017-02-25 16:22 | NUR ---
Significant Event: PT UNRESPONSIVE. COMFORT CARES. VITALS TAKEN PER FAMILY REQUEST. REPOSITIONED FREQUENTLY THROUGH SHIFT, Q2-3HR. ZUÑIGA PATENT, ONLY 10ML TEA COLOR URINE OUTUPT. LOTS OF FAMILY AT BEDSIDE THROUGH SHIFT. MORPHINE CADD PUMP RUNNING TO SUB Q NEEDLE IN ABDOMEN, 2MG CONTINUOUS, 1MG DEMAND, 10MIN LOCKOUT. TOTAL OF 3 DEMANDS, 3 DELIVERIES. NO OTHER PRNS GAVE THIS SHIFT. Follow up: COMFORT CARES
--- NOTE | 2017-02-26 05:34 | NUR ---
Significant Event: PT REMAINS UNRESPONSIVE. SPORADIC BREATHING PATTERNS WITH APNEIC EPISODES LASTING UPWARDS OF 1 MIN. FAMILY IN ROOM. Follow up:
--- NOTE | 2017-02-26 16:32 | NUR ---
Significant Event: PT REMAINS UNRESPONSIVE. COMFORT CARES. FAMILY AT BEDSIDE. MORPHINE CADD PUMP RUNNING SUB Q TO ABDOMEN. ONLY 10ML OUT OF ZUÑIGA. URINE IS MILKY TEA COLOR. VITALS PER FAMILY REQUEST. REPOSITIONED PER FAMILY REQUEST. BAG BATH COMPLETED BY FAMILY. Follow up: COMFORT CARES
== END 2017-02-27 06:50 | disposition expired | DRG 83 ==
LOC: GMED 08:39 → GMSU 09:59 → GICU 09:59 → GMSU 02-20 17:37
PROVIDERS: Emergency Medicine; ADMIT Internal Medicine
DX: S06.5X9A Traumatic subdural hemorrhage with loss of consciousness of unspecified duration, initial encounter (principal); I13.0 Hypertensive heart and chronic kidney disease with heart failure and stage 1 through stage 4 chronic kidney disease, or unspecified chronic kidney disease; S06.6X9A Traumatic subarachnoid hemorrhage with loss of consciousness of unspecified duration, initial encounter; N17.9 Acute kidney failure, unspecified; I50.22 Chronic systolic (congestive) heart failure; F03.90 Unspecified dementia, unspecified severity, without behavioral disturbance, psychotic disturbance, mood disturbance, and anxiety; I48.0 Paroxysmal atrial fibrillation; Z51.5 Encounter for palliative care; N39.0 Urinary tract infection, site not specified; N18.3 Chronic kidney disease, stage 3 (moderate); S06.2X9A Diffuse traumatic brain injury with loss of consciousness of unspecified duration, initial encounter; W18.30XA Fall on same level, unspecified, initial encounter; Z66 Do not resuscitate; Z91.81 History of falling; I25.10 Atherosclerotic heart disease of native coronary artery without angina pectoris; Z79.01 Long term (current) use of anticoagulants; E78.5 Hyperlipidemia, unspecified; N40.0 Benign prostatic hyperplasia without lower urinary tract symptoms; Z95.810 Presence of automatic (implantable) cardiac defibrillator; R47.81 Slurred speech; H35.30 Unspecified macular degeneration; L29.9 Pruritus, unspecified; R79.1 Abnormal coagulation profile; R50.9 Fever, unspecified
CPT/HCPCS: J0696; J2060; J2270; J7040; J7060

== ENCOUNTER → 2017-02-19 | Outpatient (CLI) | payer MEDICARE, OTHER | END | disposition disaster alternative care site (69) | LOC: GAMB 08:23 | DX: I63.9 Cerebral infarction, unspecified (principal); N39.0 Urinary tract infection, site not specified; F03.90 Unspecified dementia, unspecified severity, without behavioral disturbance, psychotic disturbance, mood disturbance, and anxiety; R41.82 Altered mental status, unspecified; Z79.01 Long term (current) use of anticoagulants; Z79.2 Long term (current) use of antibiotics; Z79.899 Other long term (current) drug therapy | CPT/HCPCS: A0425; A0427 ==